=== PATIENT | male | born 2000 | race Caucasian/White ===

== ENCOUNTER 2023-05-02 16:25 | Emergency (ER) | payer SELFPAY ==
[~2023-05-02] VITALS: Ht 175.3 cm; Wt 100.0 kg
[2023-05-02 16:32] VITALS: BP_DIAS 60; O2SAT 98
[2023-05-02] MEDS ORDERED: LORAZEPAM 2MG/ML CPJ IV STA (16:38)
[2023-05-02] MEDS ORDERED: ONDANSETRON HCL 4MG/2ML INJ IV STA (16:38)
[2023-05-02] MEDS ORDERED: SODIUM CHLORIDE 0.9% 1,000 ML IV ONE (16:45)
[2023-05-02 17:23] LABS: BASOPHILS % 0.2 % (0.0-2.0); HEMATOCRIT. 39.4 % (42.0-52.0); HEMOGLOBIN. 13.4 g/dL (14.0-18.0); LYMPHOCYTES % 9.9 % (20.0-50.0); MEAN CORPUSCULAR HEMOGLOBIN 27.9 pg (28.0-32.0); MEAN CORPUSCULAR VOLUME 82.2 fL (80.0-94.0); MEAN PLATELET VOLUME 8.2 fl (7.4-10.4); MONOCYTES % 7.5 % (2.0-8.0); NEUTROPHILS % 82.4 % (40.0-76.0); PLATELET 315 x1000/uL (130-400); RED BLOOD CELL COUNT 4.79 mill/uL (4.7-6.1); RED CELL DISTRIBUTION WIDTH 13.6 % (11.6-14.6)
[2023-05-02 17:32] LABS: CHLORIDE 100 mEq/L (98-107)
[2023-05-02 17:39] LABS: ETHANOL BLOOD < 10 mg/dL (-10)
[2023-05-02] MEDS ORDERED: AMOXICILLIN/POTASSIUM CLAVULANATE 875/125MG TAB PO ONE (18:45)
[2023-05-02] MEDS ORDERED: LORAZEPAM 1MG TABLET PO ONE (19:45)
[2023-05-02] MEDS ORDERED: ACET-2708 MT (19:59)
[2023-05-02] MEDS ORDERED: ONDA4TAB50 MT (19:59)
[2023-05-02] MEDS ORDERED: AMOX1TAB16 MT (19:59)
[2023-05-02] MEDS ORDERED: CHLO5CAP3 MT (19:59)
[2023-05-02 20:13] VITALS: BP_SYST 108; PULSE 108; RESP 16; TEMP 98.6
== END 2023-05-02 20:58 | disposition home or self-care (01) ==
LOC: ER 16:25
DX: F10.20 Alcohol dependence, uncomplicated (principal); F17.200 Nicotine dependence, unspecified, uncomplicated; F12.10 Cannabis abuse, uncomplicated
CPT/HCPCS: 36415; 70450; 70486; 71045; 80053; 80307; 80320; 80329; 83690; 84484; 85025; 96374; 96375; 99285; J2060; J2405; J7030; G0480